=== PATIENT | female | born 1930 | race Caucasian/White ===

== ENCOUNTER 2016-11-26 16:42 | Inpatient (IN) | payer MEDICARE, OTHER ==
[~2016-11-26] VITALS: Ht 160 cm; Wt 83.9 kg
--- NOTE | 2016-11-26 16:42 | NUR ---
PT AMBULATORY TO ER BED 08. C/O SOB SINCE 'THE START OF THE YEAR"ALSO C/O THROAT PAIN. STATES IT FEELS THIGHT. GOWNED AND PLACED ON MONITOR. JUSTIN REYNOSO.
--- NOTE | 2016-11-26 17:31 | NUR ---
DR TANG AT BEDSIDE FOR EVAL.
--- NOTE | 2016-11-26 17:39 | NUR ---
Note cait in EDM - 11/26/16 at 1743 by ILIANA PT AMBULATORY TO ER BED 08. C/O SOB SINCE 'THE START OF THE YEAR"ALSO C/O THROAT PAIN. STATES IT FEELS THIGHT. GOWNED AND PLACED ON MONITOR. JUSTIN REYNOSO.
--- NOTE | 2016-11-26 17:51 | NUR ---
RAC #20 IV ACCESS . BLOOD SAMPLE COLLECTED
[2016-11-26 17:59] LABS: BASOPHILS % (AUTO) 0.4 % (0.0-2.0); EOSINOPHILS # (AUTO) 0.1 /CMM (0.0-0.7); EOSINOPHILS % (AUTO) 1.3 % (0.0-6.0); HEMATOCRIT 45 % (33-45); HEMOGLOBIN 14.8 g/dL (11.5-14.8); LYMPHOCYTES # (AUTO) 1.9 /CMM (0.8-4.8); LYMPHOCYTES % (AUTO) 19.2 % (20.0-44.0); MEAN CORPUSCULAR HEMOGLOBIN 30 PG (26.0-33.0); MEAN CORPUSCULAR HGB CONC 33 g/dl (31.0-36.0); MEAN CORPUSCULAR VOLUME 92 fL (82-100); MONOCYTES # (AUTO) 0.5 /CMM (0.1-1.30); MONOCYTES % (AUTO) 4.6 % (2.0-12.0); NEUTROPHILS # (AUTO) 7.4 /CMM (1.8-8.9); NEUTROPHILS % (AUTO) 74.5 % (43.0-81.0); PLATELET COUNT (AUTO) 330 /CMM (150-450); RDW COEFFICIENT OF VARIATION 13.4 (11.5-15.0); RED BLOOD CELL COUNT(AUTO) 4.88 MIL/uL (4.0-5.2); WHITE BLOOD COUNT (AUTO) 9.9 K/uL (4.3-11.0)
[2016-11-26 18:07] LABS: CALCIUM, SERUM 9.4 mg/dL (8.5-10.1); CARBON DIOXIDE 31 mmol/L (21-32); CHLORIDE 104 mmol/L (98-107); GLUCOSE 114 mg/dL (74-106); POTASSIUM 5.2 mmol/L (3.5-5.1); SODIUM SERUM 141 mmol/L (136-145); UREA NITROGEN, BLOOD 11 mg/dL (7-18)
[2016-11-26 18:12] LABS: PROTHROMBIN TIME 10.8 SECS (9.5-12.7)
[2016-11-26 18:15] LABS: TROPONIN I 0.044 ng/mL (0.00-0.056)
[2016-11-26 18:20] LABS: ALANINE AMINOTRANSFERASE 22 U/L (12-78); ALBUMIN 3.3 g/dL (3.4-5.0); ALKALINE PHOSPHATASE 67 U/L (46-116); ASPARTATE AMINOTRANSFERASE 23 U/L (15-37); B-TYPE NATRIURETIC PEPTIDE 986 PG/ML (0-125); BILIRUBIN,DIRECT 0.1 mg/dL (0.0-0.2); BILIRUBIN,TOTAL 0.4 mg/dL (0.2-1.0); TOTAL PROTEIN, SERUM 8.6 g/dL (6.4-8.2)
[2016-11-26 18:22] LABS: LACTIC ACID 2.1 mmol/L (0.4-2.0)
[2016-11-26] MEDS ORDERED: AMYL1CAP58 PO (18:22)
[2016-11-26] MEDS ORDERED: DEXL60CA3 PO (18:22)
[2016-11-26] MEDS ORDERED: ASPI-991 PO (18:22)
[2016-11-26] MEDS ORDERED: VALS320T13 PO (18:22)
--- NOTE | 2016-11-26 18:41 | NUR ---
AWAITING EVALUATION BY ER PROVIDER. LACTIC ACID 2.1 NOTIFIED
--- NOTE | 2016-11-26 18:51 | NUR ---
PT SATS 93 RA O2 N/C 3L 98%
--- NOTE | 2016-11-26 19:07 | NUR ---
RECEIVED REPORT FROM LYUBOV TEJEDA.
[2016-11-26] MEDS ORDERED: NITROGLYCERIN 30 GM TUBE TP STA (19:21)
[2016-11-26] MEDS ORDERED: NITROGLYCERIN PACKET 1 GM PACKET ONE (19:23)
[2016-11-26] MEDS ORDERED: FUROSEMIDE 40 MG/4 ML VIAL ONE (19:23)
[2016-11-26] MEDS ORDERED: FUROSEMIDE 40 MG/4 ML VIAL IV ONE (19:30)
--- NOTE | 2016-11-26 20:28 | NUR ---
REPORT GIVEN TO LYUBOV COLEMAN.
--- NOTE | 2016-11-26 20:33 | NUR ---
PT TRASNFERED PER ACLS PROTOCOL.
[2016-11-26 20:35] VITALS: BP 154/81
--- NOTE | 2016-11-26 20:45 | NUR ---
BACK HANGER NOTE RECEIVED PATIENT FROM ER VIA GURMITA, PATIENT IS ALERT AND ORIENTEDX3, NIUEAN SPEAKER ONLY, FAMILY AT BEDSIDE FOR TRANSLATION. PATIENT HAS CRACKLE LUNG SOUNDS, AND COMPLAINS OF SOB WHILE SHE IS WALKING, NC 2L/MIN, O2 SAT 96%. SKIN IS INTACT EXCEPT MOLE LIKE BLACK SCAB ON RIGHT UPPER ARM NOTED. IV ON RIGHT FA 20G IS PATENT AND INTACT. TELE MONITOR CONTROLLED AFIB 92. SRX2, BED IN LOW POSITION, CALL LIGHT WITHIN REACH, WILL CONTINUE TO MONITOR PATIENT.
[2016-11-26 20:50] VITALS: BP 152/81
[2016-11-26] MEDS ORDERED: HYDROCODONE/APAP 5/325MG 1 EACH TABLET PO PRN (21:30)
[2016-11-26] MEDS ORDERED: Z GUARD REMEDY 2 OZ OINT TP PRN (21:30)
[2016-11-26] MEDS ORDERED: MAGNESIUM HYDROXIDE 30 ML UDC PO PRN (21:30)
[2016-11-26] MEDS ORDERED: ONDANSETRON HCL/PF 4 MG/2 ML VIAL IVP PRN (21:30)
[2016-11-26] MEDS ORDERED: ALBUTEROL FS 2.5 MG/0.5 ML VIAL.NEB NEB PRN (21:30)
[2016-11-26] MEDS ORDERED: ACETAMINOPHEN 325 MG TABLET PO PRN (21:30)
[2016-11-26] MEDS ORDERED: IPRATROPIUM NEB FS 0.5 MG/2.5 ML AMPUL.NEB NEB PRN (21:30)
[2016-11-26] MEDS ORDERED: ZOLPIDEM TARTRATE 5 MG TABLET ONE (21:32)
[2016-11-26] MEDS: ZOLPIDEM TARTRATE 5 MG TABLET PO PRN (21:45)
--- NOTE | 2016-11-26 21:45 | NUR ---
ASSOCIATE DIRECTOR QA NOTE PATIENT'S FAMILY REQUESTED TO GIVE PT SLEEP MED. AMBIEN 5MG PO GIVEN. WILL MONITOR FOR EFFECTIVENESS.
[2016-11-27] VITALS: BP 129/80
[2016-11-27 04:00] VITALS: BP 140/91
[2016-11-27 06:12] LABS: BASOPHILS % (AUTO) 0.2 % (0.0-2.0); EOSINOPHILS # (AUTO) 0.2 /CMM (0.0-0.7); EOSINOPHILS % (AUTO) 2.4 % (0.0-6.0); HEMATOCRIT 43 % (33-45); LYMPHOCYTES # (AUTO) 2.5 /CMM (0.8-4.8); LYMPHOCYTES % (AUTO) 25.3 % (20.0-44.0); MEAN CORPUSCULAR HEMOGLOBIN 30 PG (26.0-33.0); MEAN CORPUSCULAR HGB CONC 33 g/dl (31.0-36.0); MEAN CORPUSCULAR VOLUME 93 fL (82-100); MONOCYTES # (AUTO) 0.6 /CMM (0.1-1.30); MONOCYTES % (AUTO) 5.8 % (2.0-12.0); NEUTROPHILS # (AUTO) 6.6 /CMM (1.8-8.9); NEUTROPHILS % (AUTO) 66.3 % (43.0-81.0); PLATELET COUNT (AUTO) 303 /CMM (150-450); RDW COEFFICIENT OF VARIATION 13.8 (11.5-15.0); RED BLOOD CELL COUNT(AUTO) 4.62 MIL/uL (4.0-5.2)
[2016-11-27 06:22] LABS: CALCIUM, SERUM 8.9 mg/dL (8.5-10.1); CREATININE 1.2 mg/dL (0.6-1.3); MAGNESIUM 2.1 mg/dL (1.8-2.4); PHOSPHORUS 4.2 mg/dL (2.5-4.9); POTASSIUM 4.3 mmol/L (3.5-5.1)
--- NOTE | 2016-11-27 06:44 | NUR ---
SUPERVISOR TITLE NOTE PATIENT IS SLEEPING IN BED COMFORTABLY, NO FACIAL GRIMACE OR NO S/S OF RESPIRATORY DISTRESS NOTED. IV ON RIGHT AC IS PATENT AND INTACT, HL ONLY. 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 WILL ENDORSE TO DAY SHIFT FOR MERLIN.
[2016-11-27 06:52] VITALS: BP 145/77
--- NOTE | 2016-11-27 07:50 | NUR ---
neckties painter initial notes Received patient in bed, asleep, head of bed elevated, no SOB or distress noted. On 02 @ 2lpm via NC and tolerated well. Alert and oriented x 3, verbally responsive and able to make needs known. On tele monitor SR with BBB and 1st degree AV block. No complaint of pain or discomfort noted. Kept patient clean and comfortable in bed, call light with in patient reach, will continue to monitor accordingly.
[2016-11-27 08:00] VITALS: BP_SYST 115; BP_SYST 145; BP_DIAS 77
[2016-11-27] MEDS: ASPIRIN EC 81 MG TABLET.DR PO SCH (08:55)
[2016-11-27] MEDS: AMYLASE/LIPASE/PROTEASE 1 CAP CAPSULE.DR PO SCH ×3 (08:55→17:24)
[2016-11-27] MEDS: PANTOPRAZOLE 40 MG TABLET.DR PO SCH (08:55)
[2016-11-27] MEDS: VALSARTAN 80 MG TABLET PO SCH (08:57)
--- NOTE | 2016-11-27 11:43 | NUR ---
research mechanic notes Dr. Taylor came seen and examined the patient and informed regarding patient VTE score of >5 and ordered Lovenox SQ 40 Q24hrs. All orders carried out and noted. Will continue to monitor accordingly.
[2016-11-27] MEDS: ENOXAPARIN SODIUM 30 MG/0.3 ML DISP.SYRIN SQ SCH (12:29)
[2016-11-27 16:00] VITALS: BP 152/91
--- NOTE | 2016-11-27 16:31 | NUR ---
supervisor mirror fabrication ashish Roberson ([facility]) came seen and examined the patient and recommend boost BID. All orders carried out and notes. Will continue to monitor patient accordingly.
[2016-11-27] MEDS ORDERED: ENOXAPARIN SODIUM 40 MG/0.4 ML DISP.SYRIN SQ SCH (17:00)
[2016-11-27] MEDS: BOOST FOOD- BERRY 237 ML BOX PO SCH (17:24)
--- NOTE | 2016-11-27 19:09 | NUR ---
telesales agent closing notes All needs provided, attended, and anticipated. On tele monitor SR with 1st degree AV block and BBB. No complaint of pain or discomfort. kept patient clean and comfortable in bed, call light with in patient reach, will continue to monitor accordingly. Endorsed to next shift RN to continue care.
--- NOTE | 2016-11-27 19:40 | NUR ---
SHIP KEEPER NOTE RECEIVED PATIENT FROM DAY SHIFT, PATIENT IS ALERT AND ORIENTEDX3, DENIES RESPIRATORY DISTRESS OR PAIN AT THIS TIME. IV ON RIGHT AC IS PATENT AND INTACT, HL ONLY. SRX2, BED IN LOW POSITION, CALL LIGHT WITHIN REACH, WILL CONTINUE TO MONITOR PATIENT.
[2016-11-27 20:00] VITALS: BP 114/79
[2016-11-27] MEDS: ZOLPIDEM TARTRATE 5 MG TABLET PO PRN (23:03)
[2016-11-28] VITALS: BP 129/68
[2016-11-28 04:00] VITALS: BP_SYST 129; BP_SYST 135; BP_DIAS 68; BP_DIAS 77
--- NOTE | 2016-11-28 06:33 | NUR ---
BLIND INSTALLER NOTE PATIENT IS RESTING IN BED COMFORTABLY, NO FACIAL GRIMACE OR NO S/S OF RESPIRATORY DISTRESS NOTED. IV ON RIGHT AC IS PATENT AND INTACT, HL ONLY. NO ACUTE EVENT NOTED DURING THE ERP BUSINESS ANALYST, WILL ENDORSE TO DAY SHIFT NURSE FOR MERLIN.
[2016-11-28 07:04] VITALS: BP 133/71
--- NOTE | 2016-11-28 07:20 | NUR ---
riveter portable machine Initial notes Received patient in bed, asleep, head of bed elevated, no SOB or distress noted, on room air and tolerated well. On tele monitor SR with 1st degree AV block and BBB, no facial grimace noted at this time. IV intact and patent, HL only. Kept patient clean and comfortable in bed, call light with in patient reach, will continue to monitor accordingly.
[2016-11-28 08:00] VITALS: BP 133/71
[2016-11-28] MEDS: BOOST FOOD- BERRY 237 ML BOX PO SCH ×2 (08:28→17:04)
[2016-11-28] MEDS: ASPIRIN EC 81 MG TABLET.DR PO SCH (08:29)
[2016-11-28] MEDS: PANTOPRAZOLE 40 MG TABLET.DR PO SCH (08:29)
[2016-11-28] MEDS: AMYLASE/LIPASE/PROTEASE 1 CAP CAPSULE.DR PO SCH ×3 (08:29→17:04)
[2016-11-28] MEDS: VALSARTAN 80 MG TABLET PO SCH (08:30)
[2016-11-28] MEDS: ENOXAPARIN SODIUM 30 MG/0.3 ML DISP.SYRIN SQ SCH (12:13)
[2016-11-28] MEDS ORDERED: IV SET PRIMARY PUMP SET 1 EA INFUS.SET MC ONE (15:42)
[2016-11-28] MEDS ORDERED: SECONDARY IV SET 1 EA INFUS.SET MC ONE (15:42)
[2016-11-28] MEDS ORDERED: IV NS 0.9% 250 ML IV ONE (15:42)
[2016-11-28] MEDS: AZITHROMYCIN 500 MG in IV D5W 250 ML IV SCH (15:49)
[2016-11-28 16:00] VITALS: BP 157/99
--- NOTE | 2016-11-28 19:21 | NUR ---
MS RN closing notes All needs provided, attended, and anticipated. endorsed to next shift RN to continue care. Kept patient clean and comfortable in bed, call light with in patient reach, will continue to monitor accordingly.
--- NOTE | 2016-11-28 19:28 | NUR ---
MS TIER LIFT OPERATOR INITIAL NOTES RECEIVED REPORT FROM AM NURSE AND CHECKED PT , SHE'S AWAKE AND ALERT SITTING ON THE CHAIR , NO SIGNS OF ANY ACUTE DISTRESS NOTED. HEPLOCK AT THIS TIME. PATIENT STATED SHE VOMITED EARLIER X1 , BUT NOW NO N/V NOTED. STARTED WALKING WITH WALKER , DENIES ANY PAIN OR ANY DISCOMFORT.BACK TO HER ROOM AND KEPT HER WARM AND COMFORTABLE AT ALL TIMES. PLACE CALL LIGHT AT REACH. WILL CONTINUE TO MONITOR.
[2016-11-28 20:00] VITALS: BP 154/86
[2016-11-28] MEDS: ZOLPIDEM TARTRATE 5 MG TABLET PO PRN (21:58)
--- NOTE | 2016-11-28 22:00 | NUR ---
BRAZE OPERATOR/NOTES RG GIVEN PER PT AND FAMILY REQUESTED TO HELPED THE PT TO SLEEP. SAFETY PRECAUTION IMPLEMENTED. KEPT HER WARM AND COMFORTABLE AT ALL TIMES. WILL CONTINUE TO MONITOR. PLACE CALL LIGHT AT REACH.
--- NOTE | 2016-11-29 | NUR ---
SACK CLEANING HAND/NOTES PT SLEEPING COMFORTABLY IN BED WITHOUT ANY ACUTE DISTRESS NOTED. WILL CONTINUE TO MONITOR.
[2016-11-29 07:06] LABS: CALCIUM, SERUM 8.8 mg/dL (8.5-10.1); MAGNESIUM 1.9 mg/dL (1.8-2.4); PHOSPHORUS 3.6 mg/dL (2.5-4.9); POTASSIUM 4.2 mmol/L (3.5-5.1)
[2016-11-29 07:22] LABS: BASOPHILS % (AUTO) 0.4 % (0.0-2.0); EOSINOPHILS # (AUTO) 0.3 /CMM (0.0-0.7); EOSINOPHILS % (AUTO) 2.9 % (0.0-6.0); HEMATOCRIT 43 % (33-45); HEMOGLOBIN 14.1 g/dL (11.5-14.8); LYMPHOCYTES # (AUTO) 2.2 /CMM (0.8-4.8); LYMPHOCYTES % (AUTO) 24.9 % (20.0-44.0); MEAN CORPUSCULAR HEMOGLOBIN 31 PG (26.0-33.0); MEAN CORPUSCULAR HGB CONC 33 g/dl (31.0-36.0); MEAN CORPUSCULAR VOLUME 92 fL (82-100); MONOCYTES # (AUTO) 0.4 /CMM (0.1-1.30); MONOCYTES % (AUTO) 4.8 % (2.0-12.0); NEUTROPHILS # (AUTO) 5.8 /CMM (1.8-8.9); PLATELET COUNT (AUTO) 315 /CMM (150-450); RDW COEFFICIENT OF VARIATION 13.1 (11.5-15.0); RED BLOOD CELL COUNT(AUTO) 4.64 MIL/uL (4.0-5.2); WHITE BLOOD COUNT (AUTO) 8.7 K/uL (4.3-11.0)
--- NOTE | 2016-11-29 07:22 | NUR ---
MS FARM SUPERVISOR CLOSING NOTES PT REMAINS RESTING AFTER MORNING CARE DONE. STABLE BINH THE NIGHT AND SLEPT WELL. NO SIGNS OF ANY ACUTE DISTRESS NOTED. ALL DUE MEDS GIVEN AND ALL NEEDS MET. KEPT HER COMFORTABLE AT ALL TIMES. ENDORSE TO AM NURSE FOR CONTINUITY OF CARE. PLACE CALL LIGHT AT REACH.
[2016-11-29 08:00] VITALS: BP 144/71
[2016-11-29] MEDS: BOOST FOOD- BERRY 237 ML BOX PO SCH ×2 (08:00→16:51)
--- NOTE | 2016-11-29 08:30 | NUR ---
ms rn received on bed, Rocío speaking lady, awake,alert,oriented x3,not in any form of distress, respirations even and unlabored breathing, no sob noted.denies painat this time,all needs attended.
--- NOTE | 2016-11-29 09:55 | NUR ---
ms lawson breakfast served,due meds given,tolerated well.
[2016-11-29] MEDS: AMYLASE/LIPASE/PROTEASE 1 CAP CAPSULE.DR PO SCH ×3 (10:03→18:01)
[2016-11-29] MEDS: PANTOPRAZOLE 40 MG TABLET.DR PO SCH (10:03)
[2016-11-29] MEDS: VALSARTAN 80 MG TABLET PO SCH (10:03)
[2016-11-29] MEDS: AMLODIPINE BESYLATE 5 MG TABLET PO SCH (10:04)
[2016-11-29] MEDS: ASPIRIN EC 81 MG TABLET.DR PO SCH (10:04)
--- NOTE | 2016-11-29 10:35 | NUR ---
MS RN WAS SEEN BY RICO RODRIGUEZ W/ ORDERS MADE AND CARRIED OUT.
[2016-11-29 16:00] VITALS: BP 131/93
[2016-11-29] MEDS: AZITHROMYCIN 500 MG in IV D5W 250 ML IV SCH (16:45)
[2016-11-29] MEDS: ENOXAPARIN SODIUM 30 MG/0.3 ML DISP.SYRIN SQ SCH (16:50)
--- NOTE | 2016-11-29 17:32 | NUR ---
MS RN ON BED, FAMILY AT BEDSIDE.
--- NOTE | 2016-11-29 19:43 | NUR ---
MS RANGEL INITIAL NOTES PT SEEN IN BED AWAKE AND ALERT LYING IN BED ,DENIES ANY PAIN OR ANY DISCOMFORT AT THIS TIME. SHE ONLY REQUESTED IS HER SLEEP MEDICATION LATER. NO SOB NOTED. KEPT HER WARM AND COMFORTABLE AT ALL TIMES. PLACE CALL LIGHT AT REACH. WILL CONTINUE TO MONITOR.
[2016-11-29 20:00] VITALS: BP 114/73
[2016-11-29] MEDS: ZOLPIDEM TARTRATE 5 MG TABLET PO PRN (21:34)
--- NOTE | 2016-11-29 21:45 | NUR ---
HUB LEAD/NOTES AMBIEN 5MG GIVEN PER PT REQUESTED. PT AWARE OF POSSIBLE SIDE EFFECT . SAFETY PRECAUTION APPLIED PLACE CALL LIGHT AT REACH.
[2016-11-29 22:00] VITALS: BP 114/73
--- NOTE | 2016-11-30 | NUR ---
SHEET METAL DUCT WORKER SUPERVISOR NOTES PT SLEEPING COMFORTABLY IN BED, BREATHING EVEN AND NON-LABORED, NOT IN ANY ACUTE DISTRESS NOTED. KEPT HER COMFORTABLE AT ALL TIMES. PLACE CALL LIGHT AT REACH. WILL CONTINUE TO MONITOR.
[2016-11-30 06:41] LABS: BASOPHILS % (AUTO) 0.3 % (0.0-2.0); EOSINOPHILS # (AUTO) 0.2 /CMM (0.0-0.7); HEMATOCRIT 45 % (33-45); HEMOGLOBIN 14.9 g/dL (11.5-14.8); LYMPHOCYTES # (AUTO) 2.8 /CMM (0.8-4.8); LYMPHOCYTES % (AUTO) 26.9 % (20.0-44.0); MEAN CORPUSCULAR HEMOGLOBIN 31 PG (26.0-33.0); MEAN CORPUSCULAR HGB CONC 33 g/dl (31.0-36.0); MEAN CORPUSCULAR VOLUME 93 fL (82-100); MONOCYTES # (AUTO) 0.6 /CMM (0.1-1.30); MONOCYTES % (AUTO) 5.4 % (2.0-12.0); NEUTROPHILS # (AUTO) 6.8 /CMM (1.8-8.9); NEUTROPHILS % (AUTO) 65.4 % (43.0-81.0); PLATELET COUNT (AUTO) 322 /CMM (150-450); RDW COEFFICIENT OF VARIATION 13.5 (11.5-15.0); RED BLOOD CELL COUNT(AUTO) 4.82 MIL/uL (4.0-5.2); WHITE BLOOD COUNT (AUTO) 10.3 K/uL (4.3-11.0)
--- NOTE | 2016-11-30 06:53 | NUR ---
MS COGNOS ARCHITECT CLOSING NOTES' PT WOKE UP WITH SMILE ON HER FACE WHEN WE GREET HER GOOD MORNING "MAMA MIREYA". SHE STATED "I'M OK " SLEPT WELL ,STABLE BINH THE NIGHT . MORNING CARE ALSO DONE , DENIES ANY SOB OR ANY DISCOMFORT. KEPT HER WARM AND COMFORTABLE AT ALL TIMES PLACE CALL LIGHT AT REACH. WILL ENDORSE TO AM NURSE CABRERA FOR CONTINUITY OF CARE.
[2016-11-30 06:56] LABS: CALCIUM, SERUM 9.1 mg/dL (8.5-10.1); POTASSIUM 4.7 mmol/L (3.5-5.1)
--- NOTE | 2016-11-30 07:10 | NUR ---
MS RN NOTE: RECEIVED PATIENT WHILE RESTING IN BED, A/OX 3. BREATHING EVEN AND UNLABORED ON ROOM AIR. NO SOB, NO DISTRESS/DISCOMFORT AT THIS TIME. PATIENTS NEEDS ATTENDED TO, SAFETY MEASURES IN PLACE, WILL CONTINUE TO MONITOR.
[2016-11-30 08:00] VITALS: BP 136/67
[2016-11-30] MEDS: BOOST FOOD- BERRY 237 ML BOX PO SCH ×2 (08:13→17:07)
[2016-11-30] MEDS: ASPIRIN EC 81 MG TABLET.DR PO SCH (08:13)
[2016-11-30] MEDS: PANTOPRAZOLE 40 MG TABLET.DR PO SCH (08:13)
[2016-11-30] MEDS: AMYLASE/LIPASE/PROTEASE 1 CAP CAPSULE.DR PO SCH ×3 (08:13→17:07)
[2016-11-30] MEDS: AMLODIPINE BESYLATE 5 MG TABLET PO SCH (08:13)
[2016-11-30] MEDS: VALSARTAN 80 MG TABLET PO SCH (08:14)
[2016-11-30] MEDS: FUROSEMIDE 40 MG/4 ML VIAL IV SCH ×2 (10:03→13:35)
--- NOTE | 2016-11-30 12:00 | NUR ---
MS RN NOTE: PATIENT RESTING IN BED, NO SIGNIFICANT CHANGES IN CONDITION, WILL CONTINUE TO MONITOR.
[2016-11-30] MEDS: ENOXAPARIN SODIUM 30 MG/0.3 ML DISP.SYRIN SQ SCH (13:40)
[2016-11-30] MEDS: AZITHROMYCIN 500 MG in IV D5W 250 ML IV SCH (15:50)
[2016-11-30 16:00] VITALS: BP 117/68
--- NOTE | 2016-11-30 16:15 | NUR ---
MS RN NOTE: IV ON LEFT FOREARM IS NOW INFILTRATED. IV REMOVED AND SITE SECURED WITH GAUZE AND TAPE. NEW IV STARTED ON RIGHT FOREARM, 22 GAUGE. IV FLUIDS RUNNING WELL, WILL CONTINUE TO MONITOR.
--- NOTE | 2016-11-30 18:31 | NUR ---
MS RN NOTE: PATIENT RESTING IN BED, A/OX 4. BREATHING EVEN AND UNLABORED. NO SOB. NO DISTRESS/DISCOMFORT AT THE MOMENT. PATIENT'S NEEDS ATTENDED TO, SAFETY MEASURES IN PLACE, WILL ENDORSE TO CLOTH CARRIER FOR MERLIN.
[2016-11-30 20:00] VITALS: BP 131/73
[2016-11-30] MEDS: ZOLPIDEM TARTRATE 5 MG TABLET PO PRN (21:17)
--- NOTE | 2016-12-01 06:20 | NUR ---
MS RN NOTES AWAKE & RESPONSIVE. NOT IN ANY DISTRESS. NO SOB NOTED. DENIES ANY PAIN OR DISCOMFORT AT THIS TIME. WITH IV-HL PATENT & INTACT. CALL LIGHT WITHIN REACH. BED IN LOWEST POSITION. SR UP X 3 WITH BED ALARM ON FOR SAFETY. WILL ENDORSE TO NEXT SHIFT.
[2016-12-01 06:36] LABS: ALBUMIN 2.8 g/dL (3.4-5.0); BILIRUBIN,TOTAL 0.5 mg/dL (0.2-1.0); CALCIUM, SERUM 8.8 mg/dL (8.5-10.1); CREATININE 1.1 mg/dL (0.6-1.3); MAGNESIUM 1.9 mg/dL (1.8-2.4); PHOSPHORUS 3.9 mg/dL (2.5-4.9); POTASSIUM 4.2 mmol/L (3.5-5.1); TOTAL PROTEIN, SERUM 7.6 g/dL (6.4-8.2)
--- NOTE | 2016-12-01 07:30 | NUR ---
RN AM NOTES PT IN BED, ASLEEP, AROUSES TO TOUCH AND NAME, AO X 2-3, ON 3L O2 NC, NAD, NO SOB, RESPIRATION UNLABORED, DENIES ANY PAIN AT THIS TIME, IV ACCESS ON RIGHT FOREARM G22, FLUSHES WELL, SITE CLEAR. BRP. ON 2GM SODIUM DIET. BED IN THE LOWEST POSITION, LOCKED, SIDE RAILS X2 UP, WITH CALL LIGHT WITH IN REACH. WILL CONTINUE TO MONITOR PT.
[2016-12-01 08:00] VITALS: BP 97/62
[2016-12-01] MEDS: AMLODIPINE BESYLATE 5 MG TABLET PO SCH (08:24)
[2016-12-01] MEDS: PANTOPRAZOLE 40 MG TABLET.DR PO SCH (08:25)
[2016-12-01] MEDS: AMYLASE/LIPASE/PROTEASE 1 CAP CAPSULE.DR PO SCH ×3 (08:25→17:15)
[2016-12-01] MEDS: ASPIRIN EC 81 MG TABLET.DR PO SCH (08:25)
[2016-12-01] MEDS: VALSARTAN 80 MG TABLET PO SCH (08:25)
[2016-12-01] MEDS: BOOST FOOD- BERRY 237 ML BOX PO SCH ×2 (08:39→16:46)
--- NOTE | 2016-12-01 09:30 | NUR ---
MS RN NOTES ADMINISTERED DUE MEDS.
[2016-12-01] MEDS ORDERED: FUROSEMIDE 20 MG/2 ML VIAL IV SCH ×2 (12:00→12:30)
[2016-12-01] MEDS: ENOXAPARIN SODIUM 30 MG/0.3 ML DISP.SYRIN SQ SCH (12:50)
[2016-12-01] MEDS ORDERED: FUROSEMIDE 20 MG/2 ML VIAL IV ONE (13:00)
[2016-12-01] MEDS: AZITHROMYCIN 500 MG in IV D5W 250 ML IV SCH (15:59)
--- NOTE | 2016-12-01 15:59 | NUR ---
RN NOTES ZITHROMAX IV STARTED.
[2016-12-01 16:00] VITALS: BP 118/72
[2016-12-01 18:00] VITALS: BP 118/72
--- NOTE | 2016-12-01 18:43 | NUR ---
MS RN NOTES PT RESTING COMFORTABLY IN BED, NOT IN ANY DISTRESS, NO C/O PAIN OR DISCOMFORT, ON 02 AT 3L NC. NO SIGNIFICANT CHANGE IN CONDITION. ALL NEEDS MET. CALL LIGHT WITHIN REACH. SAFETY MEASURES IN PLACE. WILL ENDORSE TO NEXT SHIFT FOR MERLIN.
--- NOTE | 2016-12-01 19:43 | NUR ---
MS/RN OPENING NOTES PATIENT AWAKE, SITTING UP IN BED. FAMILY AT BEDSIDE. OCCASIONAL COUGH NOTED. PT ON ROOM AIR, NO SOB OR DISTRESS NOTED. BREATHING EVEN AND UNLABORED. A/OX3. DENIES PAIN. IV TO RFA PATENT AND INTACT. BED IN LOW/LOCKED POSITION WITH CALL LIGHT IN REACH. BED RAILS UPX2. HOB ELEVATED. WILL CONTINUE TO MONITOR
[2016-12-01 20:00] VITALS: BP 117/64
[2016-12-01 20:31] VITALS: BP 117/64
[2016-12-01] MEDS: ZOLPIDEM TARTRATE 5 MG TABLET PO PRN (21:59)
--- NOTE | 2016-12-02 02:00 | NUR ---
MS/RN NOTES PT ASLEEP, BREATHING EVEN AND UNLABORED. NO SIGNS OF DISTRESS NOTED. WILL CONTINUE TO MONITOR
[2016-12-02 06:49] LABS: BASOPHILS % (AUTO) 0.4 % (0.0-2.0); CALCIUM, SERUM 9.2 mg/dL (8.5-10.1); CREATININE 1.1 mg/dL (0.6-1.3); EOSINOPHILS # (AUTO) 0.3 /CMM (0.0-0.7); HEMATOCRIT 44 % (33-45); HEMOGLOBIN 14.7 g/dL (11.5-14.8); LYMPHOCYTES # (AUTO) 2.5 /CMM (0.8-4.8); LYMPHOCYTES % (AUTO) 23.1 % (20.0-44.0); MAGNESIUM 2.1 mg/dL (1.8-2.4); MEAN CORPUSCULAR HEMOGLOBIN 31 PG (26.0-33.0); MEAN CORPUSCULAR HGB CONC 33 g/dl (31.0-36.0); MEAN CORPUSCULAR VOLUME 92 fL (82-100); MONOCYTES # (AUTO) 0.5 /CMM (0.1-1.30); MONOCYTES % (AUTO) 4.7 % (2.0-12.0); NEUTROPHILS # (AUTO) 7.5 /CMM (1.8-8.9); NEUTROPHILS % (AUTO) 68.8 % (43.0-81.0); PHOSPHORUS 3.7 mg/dL (2.5-4.9); PLATELET COUNT (AUTO) 322 /CMM (150-450); POTASSIUM 4.2 mmol/L (3.5-5.1); RDW COEFFICIENT OF VARIATION 13.2 (11.5-15.0); RED BLOOD CELL COUNT(AUTO) 4.78 MIL/uL (4.0-5.2); WHITE BLOOD COUNT (AUTO) 10.9 K/uL (4.3-11.0)
--- NOTE | 2016-12-02 07:28 | NUR ---
MS/RN CLOSING NOTES PT ASLEEP, EASILY AROUSABLE TO NAME. A/OX3, SERBIAN SPEAKING. ON ROOM AIR, NO SOB OR DISTRESS NOTED. BREATHING EVEN AND UNLABORED. IV TO RFA PATENT AND INTACT. NO CHANGES OVERNIGHT. ALL NEEDS MET AND ATTENDED TO. MADE PATIENT COMFORTABLE THROUGHOUT SHIFT. BED IN LOW/LOCKED POSITIONED WITH CALL LIGHT IN REACH. BED RAILS UPX2. ENDORSED TO AM SHIFT MERLIN.
[2016-12-02] MEDS: PANTOPRAZOLE 40 MG TABLET.DR PO SCH (07:36)
[2016-12-02 08:00] VITALS: BP 153/80
--- NOTE | 2016-12-02 08:00 | NUR ---
MS RN NOTE PT. AWAKE, ALERT AND ORIENTED X4. DENIED PAIN AND SOB AT THIS TIME. PT. IS SITTING ON A CHAIR WITHOUT ANY DISTRESS. CALL LIGHT WITHIN REACH. MONITOR CLOSELY.
[2016-12-02] MEDS: AMLODIPINE BESYLATE 5 MG TABLET PO SCH (08:11)
[2016-12-02] MEDS: BOOST FOOD- BERRY 237 ML BOX PO SCH (08:11)
[2016-12-02] MEDS: ASPIRIN EC 81 MG TABLET.DR PO SCH (08:11)
[2016-12-02] MEDS: AMYLASE/LIPASE/PROTEASE 1 CAP CAPSULE.DR PO SCH ×2 (08:11→12:21)
[2016-12-02] MEDS: VALSARTAN 80 MG TABLET PO SCH (08:12)
[2016-12-02 08:23] VITALS: BP 153/80
[2016-12-02] MEDS ORDERED: FUROSEMIDE 40 MG TABLET PO SCH (11:00)
[2016-12-02] MEDS ORDERED: FURO20TA4 PO (11:21)
--- NOTE | 2016-12-02 12:16 | NUR ---
JENNIFER NICHOLAS SAW THE PT AND REVIEW ALL TEST RESULTS. PT. WILL BE DISCHARGE AFTER LUNCH.
[2016-12-02] MEDS: ENOXAPARIN SODIUM 30 MG/0.3 ML DISP.SYRIN SQ SCH (12:25)
--- NOTE | 2016-12-02 12:33 | NUR ---
PT. WILL BE DISCHARGE AROUND 1PM. GAVE AZITHROMYCIN BEFORE DISCHARGE.
--- NOTE | 2016-12-02 13:30 | NUR ---
FAMILY AT THE BEDSIDE. GIVEN DISCHARGE INSTRUCTION INCLUDING NEW MED (LASIX). UNDERSTOOD WELL. REMOVED SALINE LOCK. DISCHARGED FROM [facility] WITH FAMILY.
[2016-12-02] MEDS ORDERED: AZITHROMYCIN 250 MG TABLET PO SCH (16:00)
== END 2016-12-02 13:50 | disposition home or self-care (01) | DRG 291 ==
LOC: ER 16:43 → TELE 20:11 → MED 11-28 09:01
PROVIDERS: ADMIT Nurse Practitioner Acute Care; ATTEND Nurse Practitioner Acute Care
DX: I11.0 Hypertensive heart disease with heart failure (principal); J96.01 Acute respiratory failure with hypoxia; E87.2 Acidosis; E44.1 Mild protein-calorie malnutrition; J98.11 Atelectasis; I50.23 Acute on chronic systolic (congestive) heart failure; E87.5 Hyperkalemia; K21.9 Gastro-esophageal reflux disease without esophagitis; J20.9 Acute bronchitis, unspecified; I45.10 Unspecified right bundle-branch block; I34.0 Nonrheumatic mitral (valve) insufficiency; I35.1 Nonrheumatic aortic (valve) insufficiency
CPT/HCPCS: 36415; 71010-TC; 80048-TC; 80053-TC; 80061-TC; 80076-TC; 83605-TC; 83735-TC; 83880; 84100-TC; 84484-TC; 85025-TC; 85730-TC; 87040-TC; 87081-TC; 93307-TC; A4606; J0456; J1650; J1940; J7050; J7060; Z7610